=== PATIENT | male | born 1955 | race Caucasian/White ===

== ENCOUNTER 2017-11-12 15:42 | Emergency (ER) | payer OTHER ==
[~2017-11-12] VITALS: Ht 170.2 cm; Wt 90.7 kg
[2017-11-12 15:46] VITALS: BP 125/81
== END 2017-11-12 16:19 | disposition home or self-care (01) ==
LOC: ER 15:44
DX: S81.811D Laceration without foreign body, right lower leg, subsequent encounter (principal); X58.XXXD Exposure to other specified factors, subsequent encounter
CPT/HCPCS: 99283; A4606; Z7610